=== PATIENT | female | born 1990 | race Caucasian/White ===

== ENCOUNTER 2024-02-12 06:30 | Emergency (ER) | payer MEDICAID ==
[~2024-02-12] VITALS: Ht 170.2 cm; Wt 77.1 kg
[2024-02-12 06:42] VITALS: BP 107/73; PULSE 88; RESP 16; TEMP 97.8; O2SAT 97
[2024-02-12] MEDS: TETRACAINE HCL/PF 0.5% OPTH 4 ML BTL OP ONE (06:54)
[2024-02-12] MEDS: FLUORESCEIN OPTH STRIP 1 MG OP ONE (06:55)
[2024-02-12] MEDS ORDERED: IBUP-2213 PO (07:19)
[2024-02-12 07:27] VITALS: BP 107/73; PULSE 88; RESP 16; TEMP 97.8; O2SAT 97
== END 2024-02-12 07:29 | disposition home or self-care (01) ==
LOC: MED 06:30
DX: H10.9 Unspecified conjunctivitis (principal); Z79.1 Long term (current) use of non-steroidal anti-inflammatories (NSAID)
CPT/HCPCS: 99283